=== PATIENT | male | born 1990 | race Caucasian/White ===

== ENCOUNTER 2023-09-13 19:39 | Emergency (ER) | payer BC, OTHER ==
--- NOTE | 2023-09-13 20:37 | XRAY Report ---
PROCEDURE: Chest 1V INDICATIONS: sob TECHNIQUE: One view of the chest was acquired. COMPARISON: None. FINDINGS: Surgical changes and devices: None. Lungs and pleura: No pleural effusions or pneumothorax. Lungs are clear. Mediastinum: Mediastinal contours appear normal. Heart size is normal. Bones and chest wall: No suspicious bony lesions. Overlying soft tissues appear unremarkable. IMPRESSION: No acute cardiopulmonary process. Reviewed by: Sylvester Nicolas MD on 09/13/2023 8:35 PM PST Approved by: Sylvester Nicolas MD on 09/13/2023 8:35 PM PST Station ID: [id number]
[2023-09-13 22:20] VITALS: BP 184/86; O2SAT 96
--- NOTE | 2023-09-13 22:32 | ED Physician Documentation ---
History of Present Illness - Stated complaint Stated Complaint: CHEST PX,SOA - Chief complaint Chief Complaint: Cardiac - History obtained from History obtained from: Patient - Additonal information Additional information: The patient comes to the emergency department chief complaint of chest tightness over the last week. He states that it seems to come and go randomly and that he does have a sense of shortness of breath when it happens because he feels like he cannot take a deep breath and his chest is just mechanically tight. He denies any swelling down in his legs. No history of DVT or PE. He is otherwise fairly healthy, but has been told that he may have high blood pressure and also, that may he may have borderline diabetes. Patient states he gets to worrying about these things and that makes him feel anxious which makes his chest tightness worse. He states that just goes across the middle of his chest on both sides. It is not worse with exertion. No radiation, nausea, or diap horesis. No other complaints at this time. PD PAST MEDICAL HISTORY - Past Medical History Past Medical History: Yes Cardiovascular: None Respiratory: None Neuro: None GI: None : None HEENT: None Psych: Depression, Anxiety, Bipolar disorder Musculoskeletal: None Derm: None - Past Surgical History Past Surgical History: No HEENT: Tonsil/Adenoidectomy - Allergies Allergies/Adverse Reactions: Allergies Allergy/AdvReac Type Severity Reaction Status Date / Time No Known Drug Allergies Allergy Verified 09/13/23 19:46 - Social History Does the pt smoke?: No Smoking Status: Never smoker Does the pt drink ETOH?: No Does the pt have substance abuse?: No - Immunizations Immunizations are current?: No PD ED PE NORMAL - Vitals Vital signs reviewed: Yes - General General: Alert and oriented X 3, No acute distress, Well developed/nourished, Other (The patient appears mildly anxious but otherwise in no apparent distress.) - HEENT HEENT: Atraumatic, PERRL, EOMI, Moist mucous membranes - Neck Neck: Supple, no meningeal sign - Cardiac Cardiac: RRR, No murmur - Respiratory Respiratory: No respiratory distress, Clear bilaterally - Abdomen Abdomen: Soft, Non tender, Non distended, Other (Obese abdomen) - Derm Derm: Normal color, Warm and dry, No rash - Extremities Extremities: No deformity, No edema, No calf tenderness / cord - Neuro Neuro: Alert and oriented X 3 - Psych Psych: Normal mood, Normal affect Results - Vitals Vitals: Oxygen O2 Source Room air - EKG (time done) 1954 EKG releavant findings:: EKG personally interpreted by author of this note. Relevant findings are: Rate: Rate (enter#) (98) Rhythm: NSR [place]: Normal Intervals: Normal [place] QRS: Normal Ischemia: Normal ST segments Compare to prior EKG: Old EKG unavailable Computer interpretation: Agree with computer - Rads (name of study) Chest x-ray Relevant Findings:: Final report received, See rad report (Negative) PD Medical Decision Making - ED course Complexity details: reviewed results, re-evaluated patient, considered differential, d/w patient Departure - Departure Disposition: Home, Self Care Clinical Impression: Anxiety Chest pain Qualifiers: Chest pain type: unspecified Qualified Code(s): R07.9 - Chest pain, unspecified Condition: Stable Instructions: ED Chest Pain NonCardiac, ED Panic Attack Comments: Your EKG and chest x-ray look great tonight. Your blood sugar is normal at 105. As we discussed, you are extremely low risk for coronary artery disease, the underlying condition that causes heart attacks. Your blood pressure is high tonight, but this can also go along with anxiety. It is important that you follow-up with primary care to get established and have a full evaluation of general health. However, there is no evidence of an emergent condition tonight. You have been provided with a list of primary care physicians, nurse practitioners, and PAs in the community. For this week, the doctor on duty for ER follow-up is Dr. Kevin Kwong. His clinic contact information has been provided and you should call their clinic first thing tomorrow morning to set up an appointment. Forms: PCP List Discharge Date/Time: 09/13/23 22:47
== END 2023-09-13 22:47 | disposition home or self-care (01) ==
LOC: EDBD → ED 19:39
DX: F41.9 Anxiety disorder, unspecified (principal); R07.89 Other chest pain
CPT/HCPCS: 93005; 99283

== ENCOUNTER 2024-04-30 11:47 | Outpatient (CLI) | payer BC | END 2024-04-30 23:59 | disposition critical access hospital (66) | LOC: EMS 11:47 | DX: R46.89 Other symptoms and signs involving appearance and behavior (principal) | CPT/HCPCS: A0425; A0429 ==

== ENCOUNTER 2024-04-30 12:10 | Emergency (ER) | payer BC ==
--- NOTE | 2024-04-30 12:22 | ED Physician Documentation ---
PD HPI MHE - Stated complaint Stated Complaint: BIPOLAR EPISODE - Chief complaint Chief Complaint: MHE - History obtained from History obtained from: Patient, EMS - History of Present Illness Timing - onset: How many days ago (4) Pain level max: 0 Pain level now: 0 Similar symptoms before: Diagnosis (bipolar) Recently seen: Not recently seen - Additional information Additional information: Patient is a 33-year-old male, history of bipolar disorder. EMS states that his called 911 today because she was "scared". She states that he has been having "highs and lows" to EMS. Patient states that he has been feeling like he is having "highs and lows" as well. Has not been suicidal or homicidal. The patient's stated to EMS that he did not threaten to harm her or himself. He denies any hallucinations. Review of Systems Constitutional: denies: Fever, Chills Nose: denies: Rhinorrhea / runny nose, Congestion Throat: denies: Sore throat Cardiac: denies: Palpitations Respiratory: denies: Dyspnea, Cough GI: denies: Abdominal Pain, Nausea, Vomiting, Diarrhea : denies: Dysuria Skin: denies: Rash Musculoskeletal: denies: Neck pain, Back pain Neurologic: denies: Headache PD PAST MEDICAL HISTORY - Past Medical History Cardiovascular: None Respiratory: None Neuro: None GI: None : None HEENT: None Psych: Depression, Anxiety, Bipolar disorder Musculoskeletal: None Derm: None - Past Surgical History Past Surgical History: No HEENT: Tonsil/Adenoidectomy - Allergies Allergies/Adverse Reactions: Allergies Allergy/AdvReac Type Severity Reaction Status Date / Time No Known Drug Allergies Allergy Verified 04/30/24 12:16 - Social History Does the pt smoke?: No Smoking Status: Never smoker Does the pt drink ETOH?: No Does the pt have substance abuse?: No - Immunizations Immunizations are current?: No PD ED PE NORMAL - Vitals Vital signs reviewed: Yes - General General: Alert and oriented X 3, No acute distress - HEENT HEENT: PERRL, Moist mucous membranes - Neck Neck: Supple, no meningeal sign - Cardiac Cardiac: RRR, Strong equal pulses - Respiratory Respiratory: No respiratory distress, Clear bilaterally - Abdomen Abdomen: Soft, Non tender, Non distended - Derm Derm: Warm and dry - Extremities Extremities: No edema, No calf tenderness / cord - Neuro Neuro: Alert and oriented X 3 - Psych Psych: Normal mood, Normal affect Results - Vitals Vitals: Vital Signs - 24 hr 04/30/24 12:16 Temperature 36.8 C Heart Rate 120 H Respiratory 14 Rate Blood Pressure 128/71 O2 Saturation 94 Oxygen O2 Source Room air - EKG (time done) 1404 EKG releavant findings:: EKG personally interpreted by author of this note. Relevant findings are: Rate: Rate (enter#) (84) Rhythm: NSR [place]: Normal Intervals: Normal [place] QRS: Normal Ischemia: Normal ST segments - Labs Labs: Laboratory Tests 04/30/24 04/30/24 04/30/24 12:22 12:22 13:20 WBC 5.0 RBC 5.30 Hgb 15.3 Hct 44.2 MCV 83.4 MCH 28.9 MCHC 34.6 RDW 12.9 Plt Count 253 MPV 9.4 Neut # (Auto) 2.7 Lymph # (Auto) 1.8 [place] # (Auto) 0.4 Eos # (Auto) 0.1 Baso # (Auto) 0.0 Absolute Nucleated RBC 0.00 Nucleated RBC % 0.0 Sodium 137 Potassium 3.1 L Chloride 103 Carbon Dioxide 27 Anion Gap 7.0 BUN 16 Creatinine 0.9 Estimated GFR (MDRD) 96 Glucose 141 H Calcium 8.9 Magnesium 1.8 Total Bilirubin 0.6 AST 32 ALT 24 Alkaline Phosphatase 73 Total Protein 7.2 Albumin 4.4 Globulin 2.8 Albumin/Globulin Ratio 1.6 Lipase 11 TSH 2.31 Salicylates < 1.5 Acetaminophen 0.3 Ethyl Alcohol < 10.0 SARS-CoV-2 (PCR) NOT DETECTED PD Medical Decision Making - ED course Complexity details: reviewed results, re-evaluated patient, considered differential, d/w patient ED course: 33-year-old male presents the emergency department complaining of an exacerbation of his bipolar disorder. He did take 800 mg of Seroquel prior to arrival. No acute findings on EKG. This is within his normal dosing range. I did speak with poison control, they do not recommend any observation for any specific length of time. His EKG does not show any QT prolongation. Medically clear for psychiatric care. Social work consulted. At the time of signout social work is evaluating the patient. The patient is signed out to the [facility] emergency department physician. This document was made in part using voice recognition software. While efforts are made to proofread this document, sound alike and grammatical errors may occur. Departure - Departure Clinical Impression: Bipolar disorder Qualifiers: Active/Remission status: currently active Current bipolar episode type: mixed Current episode severity: unspecified Qualified Code(s): F31.60 - Bipolar disorder, current episode mixed, unspecified Condition: Stable Forms: PCP List
[2024-04-30 12:29] LABS: BASOPHILS % (AUTO) 0.6 %; EOSINOPHILS # (AUTO) 0.1 10^3/uL (0.0-0.7); EOSINOPHILS % (AUTO) 1.8 %; HCT - HEMATOCRIT 44.2 % (42.0-52.0); HGB - HEMOGLOBIN 15.3 g/dL (14.0-18.0); LYMPHOCYTES # (AUTO) 1.8 10^3/uL (1.5-3.5); LYMPHOCYTES % (AUTO) 35.6 %; MEAN CORPUSCULAR HEMOGLOBIN 28.9 pg (27.0-31.0); MEAN CORPUSCULAR HGB CONC 34.6 g/dL (32.0-36.0); MEAN CORPUSCULAR VOLUME 83.4 fL (80.0-94.0); MEAN PLATELET VOLUME 9.4 fL (7.4-11.4); MONOCYTES # (AUTO) 0.4 10^3/uL (0.0-1.0); NEUTROPHILS # (AUTO) 2.7 10^3/uL (1.5-6.6); NEUTROPHILS % (AUTO) 53.8 %; PLT - PLATELET COUNT 253 10^3/uL (130-450); RED CELL DISTRIBUTION WIDTH 12.9 % (12.0-15.0)
[2024-04-30 12:43] LABS: ACETAMINOPHEN 0.3 ug/mL; ALBUMIN 4.4 g/dL (3.2-5.5); ALBUMIN/GLOBULIN RATIO 1.6 (1.0-2.2); ALKALINE PHOSPHATASE 73 IU/L (42-121); ALT ALANINE AMINOTRANSFERASE 24 IU/L (10-60); AST ASPARTATE AMINOTRANSFERASE 32 IU/L (10-42); BILIRUBIN,TOTAL 0.6 mg/dL (0.2-1.0); BUN - BLOOD UREA NITROGEN 16 mg/dL (6-20); CALCIUM 8.9 mg/dL (8.5-10.3); CARBON DIOXIDE - CO2 27 mmol/L (21-32); CHLORIDE 103 mmol/L (101-111); CREATININE 0.9 mg/dL (0.6-1.3); ETOH - ETHANOL < 10.0 mg/dL; GFR - MDRD 96 (>89); GLUCOSE 141 mg/dL (74-104); LIPASE 11 U/L (11-82); MAGNESIUM 1.8 mg/dL (1.7-2.3); POTASSIUM 3.1 mmol/L (3.5-4.5); SODIUM 137 mmol/L (135-145); TOTAL PROTEIN 7.2 g/dL (6.4-8.9)
[2024-04-30 12:44] LABS: SALICYLATE < 1.5 mg/dL
[2024-04-30 12:58] LABS: THYROID STIMULATING HORMONE 2.31 uIU/mL (0.34-5.60)
[2024-04-30] MEDS: SODIUM CHLORIDE 0.9% 1,000 ML IV STA ×2 (14:14)
--- NOTE | 2024-04-30 15:57 | ED Physician Documentation ---
ED Addendum - Addendum Addendum: 04/30/24 15:[address] Almaraz at 3 PM. Briefly 33-year-old gentleman with bipolar disorder who is decompensated. [facility] worker Kimberly has seen him and elicited that per the he stopped taking his medications 3 months ago which the patient reportedly denies and he has become increasingly manic. At this juncture he had taken 800 mg of Seroquel this morning and is excessively sleepy for evaluation and Kimberly shift is close to over. It is unclear whether he would be voluntary for hospitalization but it sounds like he does have acuity for same so plan at this point is to let him sleep and when he is awake enough to participate if he is voluntary to do telepsychiatric consultation, if involuntary DCR evaluation. 04/30/24 17:18 He is more awake at this juncture. He was seen and examined at the bedside. He is actually mildly manic. He wants to go back to his hotel, I queried if he is willing to be hospitalized and he said he was so telepsychiatric consultation was placed. 04/30/24 22:05 Seen by DCR who is not detaining. The is willing to come and pick him up and they are doing mobile crisis out reach for tomorrow. Disposition: Discharged home Condition: Stable Diagnosis: 1. Bipolar disorder
[2024-04-30 17:23] VITALS: BP 124/60; O2SAT 97
[2024-04-30 17:46] LABS: BILIRUBIN,URINE NEGATIVE (NEGATIVE); GLUCOSE, URINE (UA) NEGATIVE (NEGATIVE); KETONES,URINE (UA) TRACE mg/dL (NEGATIVE); LEUKOCYTE ESTERASE, URINE NEGATIVE (NEGATIVE); NITRITE,URINE NEGATIVE (NEGATIVE); OCCULT BLOOD,URINE NEGATIVE (NEGATIVE); PROTEIN,URINE NEGATIVE (NEGATIVE); UROBILINOGEN,URINE 0.2 (NORMAL) E.U./dL (NORMAL)
[2024-04-30 17:48] LABS: CLARITY,URINE CLEAR (CLEAR)
--- NOTE | 2024-04-30 17:49 | TELEPSYCH PHYS NOTE ---
[facility] Telepsych Consult Consult Date: 04/30/24 Name of Referring Provider:: Jan Stephens Reason for Consult: possible manic episode - Suicide Risk Sreening (ASQ Tool) In the past few weeks, have you wished you were ?: No In the past few weeks, have you felt that you or your family would be better off if you were ?: No In the past week, have you been having thoughts about killing yourself?: No Have you ever tried to kill yourself?: No - Assessment Language: Chinese [employer] Required: No Cultural, Islam or Spiritual Preferences: none noted Notes: Per ED director social service: Received return call from spouse Bebe [phone]. Bebe was very tearful and distraught throughout conversation. She reports that patient "took off two days ago" and was wandering around [place]. She has never witnessed him eloping from their home; he has done it once several years ago when newly diagnosed with Bipolar disorder. Prior to his elopement from their home, he appeared to be experiencing delusions and was responding to internal stimuli. She found him at a hotel yesterday morning and he agreed to speak with her. He would vacillate between "being mean" and "loving" towards her. He made several vague threatening statements, "you're going to regret this" or "they are going kill you" but when asked to clarify, he would respond "you'll find out". Bebe reports his speech has been non-sensical for past several days. He also began talking about suicide plans but never made a clear suicidal statement. Bebe states patient stopped taking his medications about 3 months ago. He switched psychiatric providers a year ago and she suspects he is not transparent about his Bipolar 1 diagnosis. She states he has had an increase in stressors recently: recently let go from work, well not providing water to home for several months, and the closing of his mother's estate about 2 years after he found her . Chief Complaint: "Why don't you tell me why I am here." History of Present Illness: 33 y/o male with hx of bipolar disorder presents to ED after called EMS. Patient was reportedly acting manic and has taken 800 mg of seroquel. Patient reports he was not manic and has not been manic since 2016. Patient could not state why he took an increased dose of his seroquel. Patient is stating "I am fine and want to leave." Patient is poor historian and is an unreliable source. He will tell me one thing and when asked again, he will tell me a different story. Collateral information was provided from ED nurse caring for patient and hospital social work notes. Patient's was contacted by social work and stated patient had left their home two days ago and was found at a hotel. Patient reported he was at the hotel "on a vacation" with his . Patient UDS positive for THC. He states he smokes daily. Patient is arrogant and patronizing during assessment. He will not answer questions directly. He is easily distracted and does appear to be responding to internal stimuli at times. He denies SI, HI. Mood is labile. Patient is experiencing some thought blocking. Patient states he is taking his medications as prescribed but is unable to state what medications he takes. Suicide Ideation - Homicide Ideation - Self Harm: denies SI, HI Psychiatric History - Treatment History: hx of inpatient hospitalization in 2016 Community Resources Accessed: none Family Psych History/ History of suicide: unknown Nutritional Status: No nutritional concerns - Medication & Allergies Allergies/Adverse Reactions: Allergies Allergy/AdvReac Type Severity Reaction Status Date / Time No Known Drug Allergies Allergy Verified 04/30/24 12:16 - Drug & Alcohol History Does patient have Drug/ETOH history or addictive behavior?: Yes Use: Uses substance without health or social issues: Cannabis (reports smoking marijuana daily) - Trauma Does the patient have a history of trauma, abuse, neglect or explotation?: No - Personal Information Does the patient have a history or present tendencies for violence?: None Does patient have any Legal Charges or Investigations?: No Environment & Living Situation - Social, Peer-Group (Note): At home Marital Status - Family Circumstances: - no children Stressors - Financial Concerns: none noted Education: unknown Occupation: unemployed Collateral - Interdisciplinary Input: ED nurse caring for patient, social work notes - Medical History Psychiatric: reports: Depression, Anxiety, Bipolar disorder Neurological: reports: None Eyes, Ears, Nose, Throat: reports: None Cardiovascular: reports: None Respiratory: reports: None Gastrointestinal: reports: None Urinary: reports: None Musculoskeletal: reports: None Skin: reports: None - Surgical History HEENT: reports: Tonsil/Adenoidectomy - Mental Status Exam Appearance and Attire: hospital attire, appears stated age Attitude and Behavior: evasive, patronizing Speech: normal rate, decreased amount Affect and Mood: mood - "fine"; affect - labile Association and Thought Process: some thought blocking Thought Content: denies SI, HI Perception: denies AH and VH. Does appear to be responding to internal stimuli at times Sensorium, memory and orientation: awake, oriented Intellectual - Cognitive functioning: average Insight and Judgement: insight - poor/ judgement - poor Emotional and Behavioral Functioning: some mood lability Ability to Self-Care: age appropriate - Personal Goals Short-term Goals: none noted Long-term Goals: none noted - Risk/Protective Factors Risk Factors: N/A Protective Factors / Internal: Identifies reasons for living Protective Factors / External: N/A, Supportive social network of family or friends - Plan Impression/Risk Assessment: 33 y/o male with hx of bipolar disorder presents to ED via EMS after found him in a hotel. Patient reportedly took 800 mg of seroquel. He states he has not been sleeping well for the past several days averaging around 3-4 hours per night. He states he has been taking his medications but is unable to recall what medications he takes. He denies SI, HI. He does appear to be responding to internal stimuli at times. He is condescending and patronizing at times during assessment. He is an unreliable historian as he will say one thing and when asked again, he will provide a different answer. He stated he was at the hotel "on vacation" with his . Patient does appear to need stabilization and based on collateral information from ED nurse and hospital director social service notes, would be in patient's best interest to be admitted inpatient for safety, stabilization and medication management. Treatment - Therapy Recommendations: Mental health inpatient Pharmacological Recommendations: Unable to make recommendations at this time. Patient's home medications are not listed in chart. Patient did take an increased amount of seroquel and has been sleeping. - Problem List (1) Bipolar disorder Qualifiers: Active/Remission status: currently active Current bipolar episode type: mixed Current episode severity: unspecified Qualified Code(s): F31.60 - Bipolar disorder, current episode mixed, unspecified - Time Spent & Provider Location Telepsych consultation conducted via videoconferencing: Yes List names and roles of persons who participated in consult: Micky Rodríguez - patient. Joan Orellana, MSN, TYPESETTER PERFORATOR OPERATOR, PMHNP- Telepsych Provider Location: remote Time Spent (Minutes): 75
[2024-04-30 17:57] LABS: AMPHETAMINE SCREEN,URINE NEGATIVE (NEGATIVE); BARBITURATE SCREEN,UR NEGATIVE (NEGATIVE); BENZODIAZEPINES SCREEN, URINE NEGATIVE (NEGATIVE); BUPRENORPHINE SCREEN, URINE POSITIVE (NEGATIVE); COCAINE SCREEN URINE NEGATIVE (NEGATIVE); METHADONE SCREEN, URINE NEGATIVE (NEGATIVE); METHAMPHETAMINES SCREEN, URINE NEGATIVE (NEGATIVE); OPIATE SCREEN, URINE NEGATIVE (NEGATIVE); OXYCODONE SCREEN, URINE NEGATIVE (NEGATIVE); THC CANNABINOID SCREEN, URINE POSITIVE (NEGATIVE); TRICYCLIC ANTIDEPRESSANT,URINE POSITIVE (NEGATIVE)
== END 2024-04-30 22:40 | disposition home or self-care (01) ==
LOC: ED 12:10
DX: F31.60 Bipolar disorder, current episode mixed, unspecified (principal); F41.9 Anxiety disorder, unspecified; Z79.899 Other long term (current) drug therapy
CPT/HCPCS: 36415; 80053; 80143; 80179; 80306; 81003; 82077; 83690; 83735; 84443; 85025; 87635; 93005; 99283; 99284; G0427; Q3014; 81001; 87086

== ENCOUNTER 2024-05-08 02:15 | Outpatient (CLI) | payer BC | END 2024-05-08 21:50 | disposition critical access hospital (66) | LOC: EMS 02:15 | DX: Z04.6 Encounter for general psychiatric examination, requested by authority (principal); R46.4 Slowness and poor responsiveness | CPT/HCPCS: A0425; A0429 ==

== ENCOUNTER 2024-05-08 02:34 | Emergency (ER) | payer BC ==
--- NOTE | 2024-05-08 03:01 | ED Physician Documentation ---
History of Present Illness - Stated complaint Stated Complaint: MHE - Chief complaint Chief Complaint: General - History obtained from History obtained from: Patient, EMS - Additonal information Additional information: BIBA. HPI from patient, EMS. 911 was called for this patient although it is unclear to me who called 911. He was found walking on a side street in [place]. When EMS interviewed the patient, he said he was walking away from his house because he felt he no longer was supposed to live there. The patient gives me a similar explanation on my HPI. He tells me that he had sudden onset several hours ago of a feeling that the house that he was in was not his house and that he needed to get up of the house. He says he did not have a specific destination mind. He then tells me that he felt a walk would "clear my head, but ended up doing the opposite" (per patient). The patient also tells me that he had another thought tonight that he has had episodically since childhood which is something to do with his first last name not appearing to be correct to the patient. 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 He cannot elaborate further on these feelings but he is saying that he feels these are "paranoid thoughts" (per patient). Patient was treated and released from this emergency department earlier this month for similar issues. At that time, a telepsychiatric consult was obtained , recommended involuntary inpatient treatment. Thus, DCR then came to the emergency department to evaluate the patient. I am not able to access DCR's notes, but the ED MDs notes indicates DCR did not feel patient met criteria for detainment. Patient was thus discharged home from the emergency department on that visit. Patient's indicates me that he does carry diagnosis of bipolar disorder. He says his medications are lamotrigine, Seroquel, dextroamphetamine, and as needed hydroxyzine. He says he has not taken hydroxyzine today. He says he has been taking his other medications although he is not recalling whether he took the lamotrigine tonight. He denies AH, VH, SI, HI. PD PAST MEDICAL HISTORY - Past Medical History Past Medical History: Yes Cardiovascular: None Respiratory: None Neuro: None Endocrine/Autoimmune: None GI: None : None HEENT: None Psych: Depression, Anxiety, Bipolar disorder Musculoskeletal: None Derm: None - Past Surgical History Past Surgical History: No HEENT: Tonsil/Adenoidectomy - Allergies Allergies/Adverse Reactions: Allergies Allergy/AdvReac Type Severity Reaction Status Date / Time No Known Drug Allergies Allergy Verified 05/08/24 02:41 - Social History Does the pt smoke?: No Smoking Status: Never smoker Does the pt drink ETOH?: No Does the pt have substance abuse?: Yes Substance Use and Type: Marijuana - Immunizations Immunizations are current?: No - POLST Patient has POLST: No PD ED PE NORMAL - Vitals Vital signs reviewed: Yes - General General: Alert and oriented X 3, No acute distress, Well developed/nourished - HEENT HEENT: PERRL, EOMI - Cardiac Cardiac: RRR, No murmur - Respiratory Respiratory: No respiratory distress, Clear bilaterally - Abdomen Abdomen: Soft, Non tender - Neuro Neuro: Alert and oriented X 3, chemical worker 2-12 intact, No motor deficit, No sensory deficit, Normal speech Eye Opening: Spontaneous Motor: Obeys Commands Verbal: Oriented GCS Score: 15 - Psych Psych: Normal mood, Normal affect Results - Vitals Vitals: Vital Signs - 24 hr 05/08/24 05/08/24 02:41 06:17 Temperature 36.2 C L Heart Rate 84 74 Respiratory 18 16 Rate Blood Pressure 148/68 H 137/61 H O2 Saturation 100 98 Oxygen O2 Source Room air - Labs Labs: Laboratory Tests 05/08/24 05/08/24 05/08/24 03:20 03:20 03:30 WBC 7.3 RBC 5.47 Hgb 15.9 Hct 46.4 MCV 84.8 MCH 29.1 MCHC 34.3 RDW 12.8 Plt Count 292 MPV 9.8 Neut # (Auto) 5.4 Lymph # (Auto) 1.4 L [place] # (Auto) 0.5 Eos # (Auto) 0.0 Baso # (Auto) 0.0 Absolute Nucleated RBC 0.00 Nucleated RBC % 0.0 Sodium 138 Potassium 4.1 Chloride 98 L Carbon Dioxide 20 L Anion Gap 20.0 H BUN 14 Creatinine 1.1 Estimated GFR (MDRD) 76 L Glucose 79 Calcium 9.8 Magnesium 1.7 Total Bilirubin 0.5 AST 20 ALT 32 Alkaline Phosphatase 72 Total Creatine Kinase 138 Total Protein 7.4 Albumin 4.7 Globulin 2.7 Albumin/Globulin Ratio 1.7 Lipase 30 TSH 3.93 Urine Color YELLOW Urine Clarity CLEAR Urine pH 6.0 Ur Specific [place] >=1.030 H Urine Protein 30 H Urine Glucose (UA) NEGATIVE Urine Ketones >=80 H Urine Occult Blood NEGATIVE Urine Nitrite NEGATIVE Urine Bilirubin NEGATIVE Urine Urobilinogen 0.2 (NORMAL) Ur Leukocyte Esterase NEGATIVE Urine RBC 0-5 Urine WBC 0-3 Ur Squamous Epith Cells RARE Squamous Urine Bacteria Rare Ur Microscopic Review INDICATED Urine Culture Comments NOT INDICATED Salicylates < 1.5 Urine Opiates Screen NEGATIVE Ur Buprenorphine Scrn POSITIVE H Ur Oxycodone Screen NEGATIVE Urine Methadone Screen NEGATIVE Acetaminophen 0.1 Ur Barbiturates Screen NEGATIVE Ur Tricyclics Screen POSITIVE H Ur Phencyclidine Scrn NEGATIVE Ur Amphetamine Screen NEGATIVE U Methamphetamines Scrn NEGATIVE U Benzodiazepines Scrn NEGATIVE Urine Cocaine Screen NEGATIVE U Cannabinoids Screen POSITIVE H Ur Drug Screen Comment CUTOFF CONC BELOW: Ethyl Alcohol < 10.0 SARS-CoV-2 (PCR) 05/08/24 03:35 WBC RBC Hgb Hct MCV MCH MCHC RDW Plt Count MPV Neut # (Auto) Lymph # (Auto) [place] # (Auto) Eos # (Auto) Baso # (Auto) Absolute Nucleated RBC Nucleated RBC % Sodium Potassium Chloride Carbon Dioxide Anion Gap BUN Creatinine Estimated GFR (MDRD) Glucose Calcium Magnesium Total Bilirubin AST ALT Alkaline Phosphatase Total Creatine Kinase Total Protein Albumin Globulin Albumin/Globulin Ratio Lipase TSH Urine Color Urine Clarity Urine pH Ur Specific [place] Urine Protein Urine Glucose (UA) Urine Ketones Urine Occult Blood Urine Nitrite Urine Bilirubin Urine Urobilinogen Ur Leukocyte Esterase Urine RBC Urine WBC Ur Squamous Epith Cells Urine Bacteria Ur Microscopic Review Urine Culture Comments Salicylates Urine Opiates Screen Ur Buprenorphine Scrn Ur Oxycodone Screen Urine Methadone Screen Acetaminophen Ur Barbiturates Screen Ur Tricyclics Screen Ur Phencyclidine Scrn Ur Amphetamine Screen U Methamphetamines Scrn U Benzodiazepines Scrn Urine Cocaine Screen U Cannabinoids Screen Ur Drug Screen Comment Ethyl Alcohol SARS-CoV-2 (PCR) NOT DETECTED PD Medical Decision Making - ED course Complexity details: reviewed old records, reviewed results, re-evaluated patient, considered differential, d/w patient ED course: Patient is calm, cooperative. He presents with odd thoughts that are apparently not congruent with his baseline as indicated by the distress caused by these thoughts (not feeling that his home is actually his place of residence, not sure if his name is accurate). I asked him if he would like to speak with a psychiatrist in consult tonight and he answers in the affirmative. Thus, MHE- oriented testing is undertaken for the purposes of being to medically clear him for telepsychiatric consult. Results of the MHE-oriented workup are all unremarkable and thus patient is medically cleared for telepsych consult. Unfortunately, we are still awaiting this consult by the end of my shift and thus care patient is turned over the oncoming ED physician (Dr. Stephens). Departure - Departure Forms: PCP List
[2024-05-08 03:24] LABS: BASOPHILS % (AUTO) 0.3 %; HCT - HEMATOCRIT 46.4 % (42.0-52.0); HGB - HEMOGLOBIN 15.9 g/dL (14.0-18.0); LYMPHOCYTES # (AUTO) 1.4 10^3/uL (1.5-3.5); LYMPHOCYTES % (AUTO) 19.5 %; MEAN CORPUSCULAR HEMOGLOBIN 29.1 pg (27.0-31.0); MEAN CORPUSCULAR HGB CONC 34.3 g/dL (32.0-36.0); MEAN CORPUSCULAR VOLUME 84.8 fL (80.0-94.0); MEAN PLATELET VOLUME 9.8 fL (7.4-11.4); MONOCYTES # (AUTO) 0.5 10^3/uL (0.0-1.0); MONOCYTES % (AUTO) 6.6 %; NEUTROPHILS # (AUTO) 5.4 10^3/uL (1.5-6.6); NEUTROPHILS % (AUTO) 73.2 %; PLT - PLATELET COUNT 292 10^3/uL (130-450); RED BLOOD COUNT 5.47 10^6/uL (4.70-6.10); RED CELL DISTRIBUTION WIDTH 12.8 % (12.0-15.0); WHITE BLOOD COUNT 7.3 x10^3/uL (4.8-10.8)
[2024-05-08 03:34] LABS: MAGNESIUM 1.7 mg/dL (1.7-2.3)
[2024-05-08 03:40] LABS: BILIRUBIN,URINE NEGATIVE (NEGATIVE); GLUCOSE, URINE (UA) NEGATIVE (NEGATIVE); KETONES,URINE (UA) >=80 mg/dL (NEGATIVE); LEUKOCYTE ESTERASE, URINE NEGATIVE (NEGATIVE); NITRITE,URINE NEGATIVE (NEGATIVE); OCCULT BLOOD,URINE NEGATIVE (NEGATIVE); PROTEIN,URINE 30 mg/dL (NEGATIVE); UROBILINOGEN,URINE 0.2 (NORMAL) E.U./dL (NORMAL)
[2024-05-08 03:40] LABS: ACETAMINOPHEN 0.1 ug/mL; CK- CREATINE KINASE 138 IU/L (30-223); LIPASE 30 U/L (11-82)
[2024-05-08 03:41] LABS: CLARITY,URINE CLEAR (CLEAR)
[2024-05-08 03:54] LABS: THYROID STIMULATING HORMONE 3.93 uIU/mL (0.34-5.60)
[2024-05-08 04:20] LABS: BACTERIA,URINE Rare /HPF (None Seen); RBC,URINE 0-5 /HPF (0-5); SQUAMOUS EPITHELIAL CELL,UR RARE Squamous (<= Few); WBC,URINE 0-3 /HPF (0-3)
[2024-05-08 04:21] LABS: AMPHETAMINE SCREEN,URINE NEGATIVE (NEGATIVE); BARBITURATE SCREEN,UR NEGATIVE (NEGATIVE); BENZODIAZEPINES SCREEN, URINE NEGATIVE (NEGATIVE); BUPRENORPHINE SCREEN, URINE POSITIVE (NEGATIVE); COCAINE SCREEN URINE NEGATIVE (NEGATIVE); METHADONE SCREEN, URINE NEGATIVE (NEGATIVE); METHAMPHETAMINES SCREEN, URINE NEGATIVE (NEGATIVE); OPIATE SCREEN, URINE NEGATIVE (NEGATIVE); OXYCODONE SCREEN, URINE NEGATIVE (NEGATIVE); THC CANNABINOID SCREEN, URINE POSITIVE (NEGATIVE); TRICYCLIC ANTIDEPRESSANT,URINE POSITIVE (NEGATIVE)
[2024-05-08 04:22] LABS: ALBUMIN 4.7 g/dL (3.2-5.5); ALBUMIN/GLOBULIN RATIO 1.7 (1.0-2.2); ALKALINE PHOSPHATASE 72 IU/L (42-121); ALT ALANINE AMINOTRANSFERASE 32 IU/L (10-60); AST ASPARTATE AMINOTRANSFERASE 20 IU/L (10-42); BILIRUBIN,TOTAL 0.5 mg/dL (0.2-1.0); BUN - BLOOD UREA NITROGEN 14 mg/dL (6-20); CALCIUM 9.8 mg/dL (8.5-10.3); CARBON DIOXIDE - CO2 20 mmol/L (21-32); CHLORIDE 98 mmol/L (101-111); CREATININE 1.1 mg/dL (0.6-1.3); GFR - MDRD 76 (>89); GLUCOSE 79 mg/dL (74-104); POTASSIUM 4.1 mmol/L (3.5-4.5); SODIUM 138 mmol/L (135-145); TOTAL PROTEIN 7.4 g/dL (6.4-8.9)
[2024-05-08 04:33] LABS: ETOH - ETHANOL < 10.0 mg/dL
[2024-05-08 04:43] LABS: SALICYLATE < 1.5 mg/dL
--- NOTE | 2024-05-08 07:26 | TELEPSYCH PHYS NOTE ---
[facility] Telepsych Consult Consult Date: 05/08/24 Name of Referring Provider:: ED Provider Reason for Consult: Psychiatric Evaluation - Suicide Risk Sreening (ASQ Tool) In the past few weeks, have you wished you were ?: No In the past few weeks, have you felt that you or your family would be better off if you were ?: No In the past week, have you been having thoughts about killing yourself?: No Have you ever tried to kill yourself?: No - Assessment Language: Yoruba Professor Of Astronomy Required: No Cultural, Confucianism or Spiritual Preferences: n/a Chief Complaint: Psychiatric Evaluation History of Present Illness: 33 year old male with chart history of bipolar disorder presents today for evaluation. Per ED notes, he was found wandering and an unknown plant etiologist called 911. He reported to ED staff that he didn't feel like his name was his and he did not feel like his home was his, so he took a walk. I speak with the nurse. He has not had any behavioral problems in the ED. I tried to see him earlier. Nurse reported that they still needed to get consent forms, so they brought the tele set up and consent forms to the patient. He didn't understand the forms despite the RN telling him what they were. The ED provider did then go over the consent and he eventually signed, per ED RN report. He states he's in the ED because he got 'confused' last night, so he took a walk. He states he needed 'therapeutic' help. but not psychiatric help. 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 I ask what he is doing with his hands and he tells me that he is using sign language and that his riding teacher's son was deaf. I do know ASL alphabet, so I ask him to sign the alphabet so I can determine if he actually does know ASL. He was unable to sign the alphabet. He states he's been sleeping well. He states he's feeling paranoid lately, I ask him what he's been paranoid about and he tells me that he's already discussed that with me. He denies halluciantions, "just inner emotions.." He denies suicidal thoughts. He denies history of suicide attempts. He has been to respite twice and detox twice. He states he has had IP psychiatric admission "many times". He states that he has been to drug/alcohol, treatment but he won't tell me what drugs he used in the past. He becomes somewhat suspicious of my questions, I believe, and ends interview after saying, "I don't have a problem with you, I have a problem with your questions..." He then discontinues to video call. Of note he was in the ED 04-30-24 with paranoia and ITP recommended involunatry admission. Another agency came in to see him and they felt he did not meet criteria for IVC. I reviewed SW notes from that time and they spoke with family who reported that he left the home for several days, was not medication adherent and he was telling the family member that they were going to be killed by someone. Recent stressors were relayed of being let go from his job. They also reported labile mood, irritable to 'loving'. Suicide Ideation - Homicide Ideation - Self Harm: Denies SI. I was unable to assess for HI as he ended interview Psychiatric History - Treatment History: Unable to fully assess but he does state that he's had inpatient psych admissions in the past. Community Resources Accessed: ED Family Psych History/ History of suicide: Unable to assess - Medication & Allergies Allergies/Adverse Reactions: Allergies Allergy/AdvReac Type Severity Reaction Status Date / Time No Known Drug Allergies Allergy Verified 05/08/24 02:41 - Drug & Alcohol History Use: Uses substance without health or social issues: Cannabis (reports smoking marijuana daily) - Medical History Psychiatric: reports: Depression, Anxiety, Bipolar disorder Neurological: reports: None Eyes, Ears, Nose, Throat: reports: None Cardiovascular: reports: None Respiratory: reports: None Gastrointestinal: reports: None Urinary: reports: None Musculoskeletal: reports: None Skin: reports: None - Surgical History HEENT: reports: Tonsil/Adenoidectomy - Mental Status Exam Appearance and Attire: casulally groomed; hospital attire; good eye contact Attitude and Behavior: Initially cooperative; eventually becomes uncooperative Speech: Normal rate, volume and quantity Affect and Mood: Unknown mood; affect is labile- calm to irritable Association and Thought Process: disorganized at times Thought Content: denies SI; paranoia present Perception: Denies AVH Sensorium, memory and orientation: Alert; unable to assess further orientation/memory Intellectual - Cognitive functioning: currently impaired cognition Insight and Judgement: absent Emotional and Behavioral Functioning: rapid hand gestures - Risk/Protective Factors Risk Factors: Trigger events leading to humiliation, shame and/or despair, Substance intoxication or withdrawal Protective Factors / Internal: N/A Protective Factors / External: N/A - Plan Impression/Risk Assessment: 33 year old male with history of bipolar disorder and unknown substance abuse disorder presents today for psychiatric evaluation. This is the second time in the past few weeks in which he has been in the ED with psychosis. His UDS is positive for THC and buprenorphine, but I would not suspect that these substances are the cause of the problems he is experiencing. He's gravely disabled and in need of inpatient admission for safety, stabilization, and to prevent further decompensation. Treatment - Therapy Recommendations: Inpatient psychiatric hospitalization Pharmacological Recommendations: We can be contacted for a file review for medication recommendations once home med list is added/reconciled. - Time Spent & Provider Location Telepsych consultation conducted via videoconferencing: Yes List names and roles of persons who participated in consult: Lolis Irwin APRN Telepsych Provider Location: Home office Time Spent (Minutes): 50
--- NOTE | 2024-05-08 08:18 | ED Physician Documentation ---
ED Addendum - Addendum Addendum: 05/08/24 08:[address] Perez at 7 AM shift change. Briefly this is a 33-year-old gentleman who appears manic and psychotic. We had telepsych see him, her note is pending at the time of this dictation but recommendation is for inpatient treatment. Patient wants to be discharged but appears fairly psychotic so I question the safety of that so I have asked the nurse to dispatch the DCR. 05/08/24 08:31 Telepsychiatric note complete and reviewed at this time. Confirmed opinion of the telepsychiatric consultants that he is "gravely disabled and in need of inpatient admission for safety, stabilization, and to prevent further decompensation." He does want to leave and is not voluntary, so DCR evaluation is appropriate. 05/08/24 11:29 DCR saw the patient but now the patient is deemed to be voluntary and social work is looking for placement. 05/08/24 13:54 He has been accepted to [place] by [facility] and cobras are completed at this time and he is stable for transport Disposition transfer to psychiatric hospital Condition: Stable Diagnosis: 1. Jessica 2. Psychosis
[2024-05-08] MEDS: OLANZapine ODT 5 MG TABLET TL STA (09:13)
[2024-05-08] MEDS: QUEtiapine 100 MG TABLET PO STA (09:53)
[2024-05-08 16:39] VITALS: BP 139/82; O2SAT 98
== END 2024-05-08 16:26 ==
LOC: EDUNIT# → ED 02:34
DX: F30.2 Manic episode, severe with psychotic symptoms (principal)
CPT/HCPCS: 36415; 80053; 80143; 80179; 80306; 81001; 82077; 82550; 83690; 83735; 84443; 85025; 87635; 90834; 99284; 99285; A9270; Q3014; 81003; 87086